=== PATIENT | female | born 1960 | race Caucasian/White ===

== ENCOUNTER 2021-11-26 17:07 | Inpatient (IN) | payer MEDICARE, OTHER ==
[~2021-11-26] VITALS: Ht 154.9 cm; Wt 88.6 kg
--- NOTE | 2021-11-26 17:52 | NUR ---
BLOOD SAMPLE AND COVID SWAB OBTAINED, SENT TO LAB
[2021-11-26 18:00] LABS: BASOPHILS % (AUTO) 0.7 % (0.0-2.0); EOSINOPHILS % (AUTO) 4.4 % (0.0-6.0); HEMATOCRIT 34 % (33-45); HEMOGLOBIN 10.9 g/dL (11.5-14.8); LYMPHOCYTES # (AUTO) 1.4 K/uL (0.8-4.8); MEAN CORPUSCULAR HGB CONC 32 g/dl (31.0-36.0); MEAN CORPUSCULAR VOLUME 89 fL (82-100); MONOCYTES # (AUTO) 0.5 K/uL (0.1-1.30); MONOCYTES % (AUTO) 9.3 % (2.0-12.0); NEUTROPHILS # (AUTO) 3.2 K/uL (1.8-8.9); NEUTROPHILS % (AUTO) 59.6 % (43.0-81.0); PLATELET COUNT (AUTO) 224 K/uL (150-450); RED BLOOD CELL COUNT(AUTO) 3.76 MIL/uL (4.0-5.2); WHITE BLOOD COUNT (AUTO) 5.4 K/uL (4.3-11.0)
[2021-11-26] MEDS ORDERED: ENALAPRILAT DIHYD. (2.5MG/2ML) 1.25 MG/ML VIAL IV ONE ×2 (18:00→18:05)
[2021-11-26] MEDS ORDERED: FUROSEMIDE 40 MG/4 ML VIAL IV ONE (18:00)
[2021-11-26] MEDS ORDERED: NITROGLYCERIN 0.4 MG/TAB BOTTLE SL ONE (18:00)
[2021-11-26] MEDS ORDERED: ENALAPRILAT INJ (1.25 MG/ML) 1.25 MG/ML VIAL IV ONE (18:01)
[2021-11-26] MEDS ORDERED: FUROSEMIDE 40 MG/4 ML VIAL ONE (18:01)
[2021-11-26] MEDS ORDERED: NITROGLYCERIN 0.4 MG/TAB BOTTLE ONE (18:02)
[2021-11-26 18:10] LABS: CALCIUM, SERUM 8.3 mg/dL (8.5-10.1); CARBON DIOXIDE 30 mmol/L (21-32); CHLORIDE 107 mmol/L (98-107); CREATININE 1.5 mg/dL (0.6-1.3); GLUCOSE 177 mg/dL (74-106); POTASSIUM 3.6 mmol/L (3.5-5.1); SODIUM SERUM 140 mmol/L (136-145); UREA NITROGEN, BLOOD 33 mg/dL (7-18)
--- NOTE | 2021-11-26 18:37 | NUR ---
20 G SL ESTABLISHED ON R AC, FLUSHES WELL
[2021-11-26] MEDS ORDERED: ALLA266C2 TP (18:51)
[2021-11-26] MEDS ORDERED: BUME1TAB8 PO (18:51)
[2021-11-26] MEDS ORDERED: CRAN425C6 PO (18:51)
[2021-11-26] MEDS ORDERED: POVI3780 TP (18:51)
[2021-11-26] MEDS ORDERED: INSU100V39 SQ (18:51)
[2021-11-26] MEDS ORDERED: SITA100T PO (18:51)
[2021-11-26] MEDS ORDERED: LEVO200T8 PO (18:51)
[2021-11-26] MEDS ORDERED: NA P133E RC (18:51)
[2021-11-26] MEDS ORDERED: DOCU-141 PO (18:51)
[2021-11-26] MEDS ORDERED: ASPI-1169 PO (18:51)
[2021-11-26] MEDS ORDERED: LOSA50TA39 PO (18:51)
[2021-11-26] MEDS ORDERED: CARV12.52 PO (18:51)
[2021-11-26] MEDS ORDERED: CLON0.1T SL (18:51)
[2021-11-26] MEDS ORDERED: MULT-447 PO (18:51)
[2021-11-26] MEDS ORDERED: BISA10SU11 RC (18:51)
[2021-11-26] MEDS ORDERED: ACET-868 PO (18:51)
[2021-11-26] MEDS ORDERED: MAGN400O6 PO (18:51)
[2021-11-26] MEDS ORDERED: CHOL100043 PO (18:51)
[2021-11-26] MEDS ORDERED: ASCO-352 PO (18:51)
--- NOTE | 2021-11-26 19:34 | NUR ---
MOVE SHEET SUBMITTED.
--- NOTE | 2021-11-26 20:23 | NUR ---
MRSA SWAB COLLECTED AND BELONGINGS LIST DONE
--- NOTE | 2021-11-26 22:01 | NUR ---
REPORT GIVEN TO MAXI HUFF FOR OUMAR
[2021-11-26] MEDS ORDERED: ONDANSETRON HCL/PF 4 MG/2 ML VIAL IVP PRN (22:30)
[2021-11-26] MEDS ORDERED: Z GUARD REMEDY 4 OZ OINT TP PRN (22:30)
[2021-11-26] MEDS ORDERED: DEXTROSE 50%-WATER 50 ML DISP.SYRIN IV PRN (22:30)
[2021-11-26] MEDS ORDERED: ACETAMINOPHEN 325 MG TABLET PO PRN (22:30)
[2021-11-26 22:35] VITALS: BP 180/100
[2021-11-26] MEDS ORDERED: BISACODYL SUPP (10 MG) 10 MG/SUPP.RECT SUPP.RECT RC PRN (23:30)
--- NOTE | 2021-11-26 23:30 | NUR ---
DIGITAL CARTOGRAPHIC TECHNICIANPOLICE DEPARTMENT SECRETARY NOTES: RECEIVED PATIENT FROM ER VIA RNEY AWAKE, TRANSFER TO ROOM 307-2, NO COMPLAIN OF PAIN AND DISCOMFORT, SKIN ASSESSMENT DONE, NO SKIN ISSUES HAVE BEEN OBSERVED, INVENTORIES OF PERSONAL BELONGING DONE AND DOCUMENTED, PATIENT ON TELE MONITOR- SR-64, PLACED COMFORTABLY IN BED ORIENTED TO PLACE, V/S ARE RECORDED AT 170/100 CATAPRES 0.1MG SL Q6H GIVEN FOR SYSTOLIC BP>160 TO REPEAT V/S IN 30 MINUTES FOR VERIFICATION, PATIENT ON ROOM AIR SATURATING WELL, REMIND PATIENT TO USE CALL LIGHTS WHEN NEEDED ASSISTANCE, KEPT CLEAN AND DRY ALL NEEDS MET WILL CONTINUE TO MONITOR.
[2021-11-27] VITALS: BP 182/95
[2021-11-27] MEDS: CLONIDINE HCL 0.1 MG TABLET SL PRN ×2 (00:10→06:35)
--- NOTE | 2021-11-27 00:30 | NUR ---
RN NOTES: PATIENT WAS NOTED WIIH HIGH BP OF 175/100 ON MANUAL BLOOD PRESSURE GIVEN: CLONIDINE 0.5MG PRN Q6H FOR SYSTOLIC BP OF OVER 160 WILL CONTINUE TO MONITOR.
[2021-11-27 04:00] VITALS: BP 172/92
[2021-11-27 05:52] LABS: BASOPHILS % (AUTO) 0.8 % (0.0-2.0); EOSINOPHILS % (AUTO) 4.4 % (0.0-6.0); HEMATOCRIT 32 % (33-45); HEMOGLOBIN 10.5 g/dL (11.5-14.8); LYMPHOCYTES # (AUTO) 1.5 K/uL (0.8-4.8); LYMPHOCYTES % (AUTO) 26.7 % (20.0-44.0); MEAN CORPUSCULAR HGB CONC 33 g/dl (31.0-36.0); MEAN CORPUSCULAR VOLUME 89 fL (82-100); MONOCYTES # (AUTO) 0.5 K/uL (0.1-1.30); MONOCYTES % (AUTO) 8.8 % (2.0-12.0); NEUTROPHILS # (AUTO) 3.2 K/uL (1.8-8.9); NEUTROPHILS % (AUTO) 59.3 % (43.0-81.0); PLATELET COUNT (AUTO) 208 K/uL (150-450); RED BLOOD CELL COUNT(AUTO) 3.54 MIL/uL (4.0-5.2); WHITE BLOOD COUNT (AUTO) 5.5 K/uL (4.3-11.0)
[2021-11-27] MEDS: INSULIN REGULAR, HUMAN 100 UNIT/ML 3 ML VIAL SQ PRN ×5 (06:53→21:31)
--- NOTE | 2021-11-27 06:55 | NUR ---
RN NOTES: BLOOD SUGAR- 138 2 UNITS INSULIN GIVEN PER SLIDING SCALE.
--- NOTE | 2021-11-27 06:56 | NUR ---
POULTRY PATHOLOGIST CLOSING NOTES: PATIENT SLEEP IN BED COMFORTABLY, BED IN LOW POSITION CALL LIGHTS WITHIN REACH, NO COMPLAIN OF PAIN AND DISCOMFORT AT THIS TIME ON ROOM AIR SATURATING WELL, PATIENT IS A/OX3-4 ABLE TO MAKE NEEDS KNOWN ON MONITORING FOR HYPERTENSION , ON TELE [id number], PATIENT KEPT CLEAN AND DRY ALL NEEDS MET ENDORSE TO INCOMING SHIFT.
[2021-11-27 07:01] LABS: THYROID STIMULATING HORMONE 10.623 uIU/mL (0.358-3.74)
[2021-11-27 07:06] LABS: ALBUMIN 2.1 g/dL (3.4-5.0); BILIRUBIN,TOTAL 0.6 mg/dL (0.2-1.0); CALCIUM, SERUM 8.2 mg/dL (8.5-10.1); CREATININE 1.4 mg/dL (0.6-1.3); POTASSIUM 3.4 mmol/L (3.5-5.1); TOTAL PROTEIN, SERUM 5.6 g/dL (6.4-8.2)
[2021-11-27 08:00] VITALS: BP 182/96
[2021-11-27] MEDS: BLOOD SUGAR DIAGNOSTIC 1 EACH STRIP IN SCH ×4 (08:13→21:31)
[2021-11-27] MEDS: ASPIRIN 81 MG TAB.CHEW PO SCH (08:49)
[2021-11-27] MEDS: MULTIVITAMINS,THERAGRAN 1 UDTAB TABLET PO SCH (08:50)
[2021-11-27] MEDS: CHOLECALCIFEROL 1,000 UNIT TABLET (VIT D3) PO SCH (08:50)
[2021-11-27] MEDS: ASCORBIC ACID 500 MG TABLET PO SCH (08:50)
[2021-11-27] MEDS: DOCUSATE SODIUM 100 MG CAPSULE PO SCH (08:50)
[2021-11-27] MEDS: CARVEDILOL 12.5 MG TABLET PO SCH ×2 (08:50→17:09)
[2021-11-27] MEDS: HEPARIN SODIUM, PORCINE 5000 UNITS/1 ML VIAL SQ SCH ×2 (08:51→21:30)
[2021-11-27] MEDS: PANTOPRAZOLE 40 MG TABLET.DR PO SCH (09:02)
[2021-11-27] MEDS: LEVOTHYROXINE SODIUM 100 MCG TABLET PO SCH ×2 (09:02→09:26)
--- NOTE | 2021-11-27 09:18 | NUR ---
RN NOTE- NOTED TSH IS 10.623. CALLED DR DICKINSON TO CLARIFY ORDERS
[2021-11-27] MEDS: FUROSEMIDE 40 MG/4 ML VIAL IV SCH ×3 (09:49→17:09)
[2021-11-27] MEDS: POTASSIUM CHLORIDE 20 MEQ TAB.PRT.SR PO SCH ×3 (09:50→12:23)
[2021-11-27] MEDS: hydrALAZINE HCL 50 MG TABLET PO SCH ×3 (09:50→17:08)
[2021-11-27] MEDS: NITROGLYCERIN 30 GM TUBE TP SCH ×2 (10:39→21:30)
--- NOTE | 2021-11-27 11:27 | NUR ---
RN OPENING NOTES- PATIENT SLEEP IN BED COMFORTABLY, BED IN LOW POSITION CALL LIGHTS WITHIN REACH, NO COMPLAIN OF PAIN AND DISCOMFORT AT THIS TIME ON ROOM AIR SATURATING WELL, PATIENT IS A/OX3-4 ABLE TO MAKE NEEDS KNOWN ON MONITORING FOR HYPERTENSION , ON TELE [id number]. MONITOR/ ASSIST
[2021-11-27 12:00] VITALS: BP 129/61
[2021-11-27 16:00] VITALS: BP 152/76
--- NOTE | 2021-11-27 18:31 | NUR ---
RN CLOSING NOTES- PATIENT COMFORTABLE ALERT, BED IN LOW POSITION, CALL LIGHT WITHIN REACH, NO COMPLAINT OF PAIN AND DISCOMFORT AT THIS TIME ON ROOM AIR SATURATING WELL, PATIENT IS A/OX3-4 ABLE TO MAKE NEEDS KNOWN ON MONITORING FOR HYPERTENSION , BP MORE CONTROLLED W CURRENT RX, ON TELE [id number]. DIURESED TODAY [place] CR REPLACED, PO INTAKE FAIR, MONITOR / ASSIST
--- NOTE | 2021-11-27 19:35 | NUR ---
RN OPENING NOTES- PATIENT COMFORTABLE ALERT, BED IN LOW POSITION, CALL LIGHT WITHIN REACH, TABLE WITHIN REACH BED IN LOW POSITION AND LOCKED. BED ALARM ON. NO COMPLAINT OF PAIN AND DISCOMFORT AT THIS TIME ON ROOM AIR SATURATING WELL, PATIENT IS A/OX3-4 ABLE TO MAKE NEEDS KNOWN ON MONITORING FOR HYPERTENSION , ON TELE [id number].
[2021-11-27 20:00] VITALS: BP 139/70
[2021-11-28] VITALS: BP 158/70
[2021-11-28 04:00] VITALS: BP 135/69
[2021-11-28 06:16] LABS: BASOPHILS % (AUTO) 0.7 % (0.0-2.0); EOSINOPHILS % (AUTO) 2.2 % (0.0-6.0); HEMATOCRIT 31 % (33-45); HEMOGLOBIN 10.2 g/dL (11.5-14.8); LYMPHOCYTES # (AUTO) 1.1 K/uL (0.8-4.8); LYMPHOCYTES % (AUTO) 19.2 % (20.0-44.0); MEAN CORPUSCULAR HGB CONC 33 g/dl (31.0-36.0); MEAN CORPUSCULAR VOLUME 89 fL (82-100); MONOCYTES # (AUTO) 0.5 K/uL (0.1-1.30); MONOCYTES % (AUTO) 8.3 % (2.0-12.0); NEUTROPHILS # (AUTO) 4.1 K/uL (1.8-8.9); NEUTROPHILS % (AUTO) 69.6 % (43.0-81.0); PLATELET COUNT (AUTO) 219 K/uL (150-450); RED BLOOD CELL COUNT(AUTO) 3.46 MIL/uL (4.0-5.2); WHITE BLOOD COUNT (AUTO) 5.9 K/uL (4.3-11.0)
[2021-11-28 06:39] LABS: ALBUMIN 2.2 g/dL (3.4-5.0); BILIRUBIN,TOTAL 0.6 mg/dL (0.2-1.0); CALCIUM, SERUM 8.3 mg/dL (8.5-10.1); CREATININE 1.6 mg/dL (0.6-1.3); MAGNESIUM 1.8 mg/dL (1.8-2.4); PHOSPHORUS 4.1 mg/dL (2.5-4.9); POTASSIUM 3.7 mmol/L (3.5-5.1); TOTAL PROTEIN, SERUM 5.7 g/dL (6.4-8.2)
[2021-11-28] MEDS: BLOOD SUGAR DIAGNOSTIC 1 EACH STRIP IN SCH ×4 (06:55→22:23)
[2021-11-28] MEDS: INSULIN REGULAR, HUMAN 100 UNIT/ML 3 ML VIAL SQ PRN ×2 (06:55→22:23)
--- NOTE | 2021-11-28 06:56 | NUR ---
RN CLOSING NOTES PATIENT COMFORTABLE ALERT, BED IN LOW POSITION, CALL LIGHT WITHIN REACH, TABLE WITHIN REACH BED IN LOW POSITION AND LOCKED. BED ALARM ON. NO COMPLAINT OF PAIN AND DISCOMFORT AT THIS TIME ON ROOM AIR SATURATING WELL, PATIENT IS A/OX3-4 ABLE TO MAKE NEEDS KNOWN ON MONITORING FOR HYPERTENSION , ON TELE [id number].
--- NOTE | 2021-11-28 07:30 | NUR ---
RN Opening Note. PT AOx4, able to express her own concerns. Patient made aware of plan of care and agrees. Will continue to monitor throughout shift and administer medications as ordered. Will continue to monitor and provide care as needed. No signs of distress or discomfort. All safety precautions taken, call light and table within reach, bed at lowest position.
[2021-11-28 08:00] VITALS: BP 138/75
[2021-11-28] MEDS: LEVOTHYROXINE SODIUM 100 MCG TABLET PO SCH (08:01)
[2021-11-28] MEDS: POTASSIUM CHLORIDE 20 MEQ TAB.PRT.SR PO SCH ×3 (08:01→11:21)
[2021-11-28] MEDS: FUROSEMIDE 100 MG/10 ML VIAL IV SCH ×3 (08:01→16:34)
[2021-11-28] MEDS: PANTOPRAZOLE 40 MG TABLET.DR PO SCH (08:01)
[2021-11-28] MEDS: CHOLECALCIFEROL 1,000 UNIT TABLET (VIT D3) PO SCH (08:11)
[2021-11-28] MEDS: ASCORBIC ACID 500 MG TABLET PO SCH (08:11)
[2021-11-28] MEDS: ASPIRIN 81 MG TAB.CHEW PO SCH (08:11)
[2021-11-28] MEDS: DOCUSATE SODIUM 100 MG CAPSULE PO SCH (08:11)
[2021-11-28] MEDS: HEPARIN SODIUM, PORCINE 5000 UNITS/1 ML VIAL SQ SCH ×2 (08:12→22:07)
[2021-11-28] MEDS: CARVEDILOL 12.5 MG TABLET PO SCH ×2 (08:15→16:35)
[2021-11-28] MEDS: hydrALAZINE HCL 50 MG TABLET PO SCH (08:16)
[2021-11-28] MEDS: MULTIVITAMINS,THERAGRAN 1 UDTAB TABLET PO SCH (09:00)
[2021-11-28] MEDS: NITROGLYCERIN 30 GM TUBE TP SCH ×2 (11:13→22:05)
[2021-11-28] MEDS ORDERED: POTASSIUM CHLORIDE 20 MEQ TAB.PRT.SR PO SCH ×2 (12:00→13:00)
--- NOTE | 2021-11-28 12:05 | NUR ---
SS consult requested by patient for power of mixing tank operator information. The pt. is a 61 year old female currently admitted to Med Surg due to CHF per EMR. The pt. is awake, alert & oriented x 4 and does not make eye contact. Pt. 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 BRITNI explained the filing process and she expressed understanding and asked that I explain to her daughter, Amy Doherty [phone]. SW called the pt.'s daughter, mAy Doherty [phone] and educated her on how to complete paperwork with the pt. and have it signed by pub;melanie bennett and provided public notary contact. Amy stated she lives near by and will assist pt. with completing paperwork. SW left [facility] Power of Rn Nursery Form at bedside for patient and daughter to complete. SW will be available as needed.
[2021-11-28] MEDS: NIFEdipine XL (30MG) 30 MG TAB PO SCH (12:56)
[2021-11-28 16:02] VITALS: BP 124/73
--- NOTE | 2021-11-28 19:30 | NUR ---
RN OPENING NOTES RECEIVED PT IN BED, ASLEEP, AWAKE, LISTENING TO RADIO. AOx4, ABLE TO MAKE NEEDS KNOWN. ON RA AND TOLERATING WELL. NO SOB NOTED. NO S/SX OF RESPIRATORY DISTRESS NOTED. TELE MONITOR DETECTS SINUS RHYTHM. IV ACCESS IN RAC #20G. IV IS INTACT, PATENT, AND FLUSHING WELL. SAFETY PRECAUTIONS IN PLACE: BED IN LOWEST, LOCKED POSITION, SIDERAILS UP x2, AND BRAKES ON. TABLE AND CALL LIGHT WITHIN REACH. ALL NEEDS MET AT THIS TIME.
--- NOTE | 2021-11-28 19:43 | NUR ---
RN Closing Note. PT AOx4, able to express her own concerns. Patient remained safe throughout shift, no adverse events. Patients daughter was able to deliver food for patient. Provided all medications as prescribed, monitored sugars, did not administered insulin since patients sugars were stable and she was not eating, states she is not that hungry. No signs of distress or discomfort. All safety precautions taken, call light and table within reach, bed at lowest position.
[2021-11-28 20:20] VITALS: BP 124/55
--- NOTE | 2021-11-28 22:00 | NUR ---
RN NOTES RECEIVED CRITICAL LAB VALUE FOR TROPONIN OF 75. SHINGLE SAWYER, TERESA, MADE AWARE. NO NEW ORDERS.
[2021-11-29 01:07] VITALS: BP 160/71
[2021-11-29 04:49] VITALS: BP 135/73
[2021-11-29 06:23] LABS: BASOPHILS % (AUTO) 0.8 % (0.0-2.0); EOSINOPHILS % (AUTO) 3.2 % (0.0-6.0); HEMATOCRIT 31 % (33-45); HEMOGLOBIN 10.1 g/dL (11.5-14.8); LYMPHOCYTES # (AUTO) 1.2 K/uL (0.8-4.8); LYMPHOCYTES % (AUTO) 20.3 % (20.0-44.0); MEAN CORPUSCULAR HGB CONC 33 g/dl (31.0-36.0); MEAN CORPUSCULAR VOLUME 90 fL (82-100); MONOCYTES # (AUTO) 0.5 K/uL (0.1-1.30); MONOCYTES % (AUTO) 8.9 % (2.0-12.0); NEUTROPHILS # (AUTO) 3.9 K/uL (1.8-8.9); NEUTROPHILS % (AUTO) 66.8 % (43.0-81.0); PLATELET COUNT (AUTO) 210 K/uL (150-450); RED BLOOD CELL COUNT(AUTO) 3.39 MIL/uL (4.0-5.2); WHITE BLOOD COUNT (AUTO) 5.9 K/uL (4.3-11.0)
[2021-11-29] MEDS: BLOOD SUGAR DIAGNOSTIC 1 EACH STRIP IN SCH ×4 (06:34→21:50)
[2021-11-29] MEDS: INSULIN REGULAR, HUMAN 100 UNIT/ML 3 ML VIAL SQ PRN (06:34)
--- NOTE | 2021-11-29 07:02 | NUR ---
RN CLOSING NOTES PT IN BED, ASLEEP, AWAKENS TO VERBAL STIMULI. AOx4, ABLE TO MAKE NEEDS KNOWN. ON RA AND TOLERATING WELL. NO SOB NOTED. NO S/SX OF RESPIRATORY DISTRESS NOTED. TELE MONITOR DETECTS SINUS RHYTHM. IV ACCESS IN RAC #20G. IV IS INTACT, PATENT, AND FLUSHING WELL. ALL NEEDS MET. ALL ORDERS CARRIED OUT. PT KEPT CLEAN AND DRY. SAFETY PRECAUTIONS IN PLACE: BED IN LOWEST, LOCKED POSITION, SIDERAILS UP x2, AND BRAKES ON. TABLE AND CALL LIGHT WITHIN REACH. WILL ENDORSE TO ONCOMING SHIFT FOR OUMAR.
--- NOTE | 2021-11-29 07:30 | NUR ---
RN Opening Note PT AOx4 able to express her own concerns. Patient with no signs of distress. Patient asking for help with her personal radio and making calls since she states she is blind. IV shows no signs of infiltration, no pain reported on IV site. Patient states she is able to reposition herself as needed.Will continue to monitor patient, administer medications as ordered and provide care as needed. All safety precautions taken, call light and table within reach, bed at lowest position.
[2021-11-29 07:45] LABS: ALBUMIN 2.2 g/dL (3.4-5.0); BILIRUBIN,TOTAL 0.6 mg/dL (0.2-1.0); CALCIUM, SERUM 8.2 mg/dL (8.5-10.1); CREATININE 1.7 mg/dL (0.6-1.3); MAGNESIUM 1.8 mg/dL (1.8-2.4); PHOSPHORUS 4.3 mg/dL (2.5-4.9); POTASSIUM 3.9 mmol/L (3.5-5.1); TOTAL PROTEIN, SERUM 5.8 g/dL (6.4-8.2)
[2021-11-29 08:00] VITALS: BP 131/68
[2021-11-29] MEDS: LEVOTHYROXINE SODIUM 100 MCG TABLET PO SCH (08:33)
[2021-11-29] MEDS: ASCORBIC ACID 500 MG TABLET PO SCH (08:33)
[2021-11-29] MEDS: DOCUSATE SODIUM 100 MG CAPSULE PO SCH (08:33)
[2021-11-29] MEDS: MULTIVITAMINS,THERAGRAN 1 UDTAB TABLET PO SCH (08:33)
[2021-11-29] MEDS: CHOLECALCIFEROL 1,000 UNIT TABLET (VIT D3) PO SCH (08:34)
[2021-11-29] MEDS: ASPIRIN 81 MG TAB.CHEW PO SCH (08:34)
[2021-11-29] MEDS: PANTOPRAZOLE 40 MG TABLET.DR PO SCH (08:34)
[2021-11-29] MEDS: NIFEdipine XL (30MG) 30 MG TAB PO SCH (08:36)
[2021-11-29] MEDS: CARVEDILOL 12.5 MG TABLET PO SCH ×2 (08:37→16:40)
[2021-11-29] MEDS: NITROGLYCERIN 30 GM TUBE TP SCH ×2 (08:37→20:41)
[2021-11-29] MEDS: HEPARIN SODIUM, PORCINE 5000 UNITS/1 ML VIAL SQ SCH ×2 (08:39→20:39)
[2021-11-29 12:00] VITALS: BP 138/67
[2021-11-29 16:00] VITALS: BP 133/64
--- NOTE | 2021-11-29 19:26 | NUR ---
RN Closing Notes Patient AOx4, explained plan of care to pt and daughter. Aware of possible discharge tomorrow and pending life vest. Provided care and medications as prescribed. Patient remained safe throughout shift. All safety precautions taken, call light and table within reach and bed at lowest position.
[2021-11-29 20:00] VITALS: BP 118/61
--- NOTE | 2021-11-29 20:07 | NUR ---
RECEIVED IN BED ALERT AND ORIENTATED X4 SMILING NO SOB WATCHING TV CALL LIGHT WITHIN HER REACH
[2021-11-30] VITALS: BP 117/57
[2021-11-30 04:00] VITALS: BP_SYST 117; BP_SYST 126; BP_DIAS 57; BP_DIAS 67
--- NOTE | 2021-11-30 05:28 | NUR ---
CLOSING NOTES: ALERT AND ORIENTATED X4 COOPERATIVE ROOM AIR THIS SHIFT SATS 90- 98% ROOM AIR NO SOB PATIENT IS BLIND TABLE SET UP SO SHE IS ABLE TO REACH FOR HER WATER AND TISSUE
[2021-11-30] MEDS: BLOOD SUGAR DIAGNOSTIC 1 EACH STRIP IN SCH ×4 (05:53→21:07)
[2021-11-30 06:14] LABS: BASOPHILS % (AUTO) 0.4 % (0.0-2.0); EOSINOPHILS % (AUTO) 3.3 % (0.0-6.0); HEMATOCRIT 31 % (33-45); HEMOGLOBIN 10.2 g/dL (11.5-14.8); LYMPHOCYTES # (AUTO) 1.3 K/uL (0.8-4.8); LYMPHOCYTES % (AUTO) 21.1 % (20.0-44.0); MEAN CORPUSCULAR HGB CONC 33 g/dl (31.0-36.0); MEAN CORPUSCULAR VOLUME 89 fL (82-100); MONOCYTES # (AUTO) 0.6 K/uL (0.1-1.30); MONOCYTES % (AUTO) 9.5 % (2.0-12.0); NEUTROPHILS # (AUTO) 4.1 K/uL (1.8-8.9); NEUTROPHILS % (AUTO) 65.7 % (43.0-81.0); PLATELET COUNT (AUTO) 209 K/uL (150-450); RED BLOOD CELL COUNT(AUTO) 3.45 MIL/uL (4.0-5.2); WHITE BLOOD COUNT (AUTO) 6.2 K/uL (4.3-11.0)
[2021-11-30 06:35] LABS: CALCIUM, SERUM 8.1 mg/dL (8.5-10.1); CREATININE 1.9 mg/dL (0.6-1.3); MAGNESIUM 1.8 mg/dL (1.8-2.4); PHOSPHORUS 4.3 mg/dL (2.5-4.9); POTASSIUM 3.9 mmol/L (3.5-5.1)
--- NOTE | 2021-11-30 07:30 | NUR ---
BENCHROOM SHOP OPTICIAN OPENING NOTES RECEIVED PT IN BED, AWAKE AOx4, ABLE TO MAKE NEEDS KNOWN. ON RA AND TOLERATING WELL. NO SOB NOTED. NO S/SX OF RESPIRATORY DISTRESS NOTED. TELE MONITOR READS SINUS RHYTHM. IV ACCESS IN RAC #20G. IV IS INTACT, PATENT, AND FLUSHING WELL. AA SAFETY PRECAUTIONS IN PLACE: BED IN LOWEST, LOCKED POSITION, SIDERAILS UP x2, AND BRAKES ON. TABLE AND CALL LIGHT WITHIN REACH. ALL NEEDS MET AT THIS TIME.WILL CONTINUE TO MONITOR.
[2021-11-30] MEDS: PANTOPRAZOLE 40 MG TABLET.DR PO SCH (07:56)
[2021-11-30] MEDS: LEVOTHYROXINE SODIUM 100 MCG TABLET PO SCH (07:56)
[2021-11-30] MEDS: MULTIVITAMINS,THERAGRAN 1 UDTAB TABLET PO SCH (09:07)
[2021-11-30] MEDS: ASPIRIN 81 MG TAB.CHEW PO SCH (09:07)
[2021-11-30] MEDS: ASCORBIC ACID 500 MG TABLET PO SCH (09:09)
[2021-11-30] MEDS: CARVEDILOL 12.5 MG TABLET PO SCH ×2 (09:09→17:13)
[2021-11-30] MEDS: DOCUSATE SODIUM 100 MG CAPSULE PO SCH (09:09)
[2021-11-30] MEDS: CHOLECALCIFEROL 1,000 UNIT TABLET (VIT D3) PO SCH (09:10)
[2021-11-30] MEDS: NIFEdipine XL (30MG) 30 MG TAB PO SCH (09:11)
[2021-11-30] MEDS: HEPARIN SODIUM, PORCINE 5000 UNITS/1 ML VIAL SQ SCH ×2 (09:13→21:02)
[2021-11-30] MEDS: SPIRONOLACTONE 25 MG TABLET PO SCH (09:20)
[2021-11-30] MEDS ORDERED: SACU1TAB7 PO (12:05)
[2021-11-30] MEDS ORDERED: NIFE-35 PO (12:05)
[2021-11-30] MEDS ORDERED: DAPA10TA PO (12:05)
--- NOTE | 2021-11-30 18:33 | NUR ---
RODENT EXTERMINATOR CLOSING NOTES PT IN BED, AWAKE AOx4, ABLE TO MAKE NEEDS KNOWN. ON RA AND TOLERATING WELL. NO SOB NOTED. NO S/SX OF RESPIRATORY DISTRESS NOTED. PATIENT IS BLIND. TELE MONITOR READS SINUS RHYTHM. IV ACCESS IN RAC #20G. IV IS INTACT, PATENT, AND FLUSHING WELL. ALL DUE MEDS GIVEN ORDERED. PATIENT ON LIFE VEST. THE NURSE WHO EDUCATE THE PATIENT FOR LIFE VEST USE STATED SINCE THE PATIENT IS BLIND THEY WILL FOLLOW-UP FOR ANOTHER EDUCATION TOMORROW WHEN DISCHARGE TO FACILITY. DC ORDER FOR COUNTS INCLUDE 234 BEDS AT THE [facility] PER NOTES AT 1000 AM.ALL SAFETY PRECAUTIONS IN PLACE: BED IN LOWEST, LOCKED POSITION, SIDE RAILS UP x2, AND BRAKES ON. TABLE AND CALL LIGHT WITHIN REACH. ALL NEEDS MET AT THIS TIME.WILL ENDORSE FOR OUMAR.
--- NOTE | 2021-11-30 19:33 | NUR ---
EVENT SECURITY OFFICER OPENING NOTE RECEIVED PT AWAKE IN BED. A/O X4, BLIND, AND ABLE TO MAKE NEEDS KNOWN. PT STABLE ON ROOM AIR. NO SOB OR S/S OF RESPIRATORY DISTRESS. BREATHING EVEN AND UNLABORED. ON EXTERNAL CARGO HANDLER READING SR. WITH LIFE VEST ON. SAFETY PRECAUTIONS IN PLACE. BED IN LOWEST LOCKED POSITION, HOB ELEVATED, SIDE RAILS UP X 3, AND CALL LIGHT AND TABLE WITHIN REACH. ALL NEEDS MET AT THIS TIME.
[2021-11-30 21:11] VITALS: BP 125/65
[2021-12-01] VITALS: BP 141/77
[2021-12-01 05:00] VITALS: BP 138/67
[2021-12-01 05:54] LABS: BASOPHILS % (AUTO) 0.5 % (0.0-2.0); EOSINOPHILS % (AUTO) 4.3 % (0.0-6.0); HEMATOCRIT 32 % (33-45); HEMOGLOBIN 10.5 g/dL (11.5-14.8); LYMPHOCYTES # (AUTO) 1.1 K/uL (0.8-4.8); LYMPHOCYTES % (AUTO) 18.1 % (20.0-44.0); MEAN CORPUSCULAR HGB CONC 33 g/dl (31.0-36.0); MEAN CORPUSCULAR VOLUME 90 fL (82-100); MONOCYTES # (AUTO) 0.6 K/uL (0.1-1.30); MONOCYTES % (AUTO) 9.7 % (2.0-12.0); NEUTROPHILS # (AUTO) 4.2 K/uL (1.8-8.9); NEUTROPHILS % (AUTO) 67.4 % (43.0-81.0); PLATELET COUNT (AUTO) 209 K/uL (150-450); RED BLOOD CELL COUNT(AUTO) 3.53 MIL/uL (4.0-5.2); WHITE BLOOD COUNT (AUTO) 6.2 K/uL (4.3-11.0)
[2021-12-01] MEDS: BLOOD SUGAR DIAGNOSTIC 1 EACH STRIP IN SCH (06:31)
[2021-12-01] MEDS: INSULIN REGULAR, HUMAN 100 UNIT/ML 3 ML VIAL SQ PRN (06:32)
--- NOTE | 2021-12-01 06:32 | NUR ---
RN NOTE PT REFUSED INSULIN AT THIS TIME. BS 138. EXPLAINED RISKS OF NOT TAKING INSULIN. PT VERBALIZED UNDERSTANDING AND STILL REFUSED STATING "I STILL DON'T THINK I NEED IT".
--- NOTE | 2021-12-01 06:40 | NUR ---
BINDERY MACHINE FEEDER OFFBEARER CLOSING NOTE PT AWAKE IN BED. A/O X4, BLIND, AND ABLE TO MAKE NEEDS KNOWN. PT STABLE ON ROOM AIR. NO SOB OR S/S OF RESPIRATORY DISTRESS. BREATHING EVEN AND UNLABORED. ON EXTERNAL CATHODE RAY TUBE SALVAGE PROCESSOR READING SR 69 BPM. WITH LIFE VEST ON. ALL DUE MEDS GIVEN ORDERED. FOR DC TODAY TO [facility], PICKUP SCHEDULED FOR 10 AM. SAFETY PRECAUTIONS IN PLACE AT ALL TIMES. BED IN LOWEST LOCKED POSITION, HOB ELEVATED, SIDE RAILS UP X 3, AND CALL LIGHT AND TABLE WITHIN REACH. ALL NEEDS MET AT THIS TIME AND WILL ENDORSE TO ONCOMING NURSE FOR OUMAR.
[2021-12-01 06:42] LABS: CALCIUM, SERUM 8.2 mg/dL (8.5-10.1); CREATININE 1.9 mg/dL (0.6-1.3); MAGNESIUM 1.9 mg/dL (1.8-2.4); PHOSPHORUS 4.1 mg/dL (2.5-4.9); POTASSIUM 3.7 mmol/L (3.5-5.1)
--- NOTE | 2021-12-01 07:14 | NUR ---
HEAD AND NECK SURGEON OPENING NOTES RECEIVED PT IN BED, AWAKE AOx4, ABLE TO MAKE NEEDS KNOWN. ON RA AND TOLERATING WELL. NO SOB NOTED. NO S/SX OF RESPIRATORY DISTRESS NOTED. TELE MONITOR READS SINUS RHYTHM. IV ACCESS IN RAC #20G. IV IS INTACT, PATENT, AND FLUSHING WELL. ALL SAFETY PRECAUTIONS IN PLACE: BED IN LOWEST, LOCKED POSITION, SIDERAILS UP x2, AND BRAKES ON. TABLE AND CALL LIGHT WITHIN REACH. ALL NEEDS MET AT THIS TIME.WILL CONTINUE TO MONITOR.
[2021-12-01] MEDS: PANTOPRAZOLE 40 MG TABLET.DR PO SCH (07:44)
[2021-12-01] MEDS: LEVOTHYROXINE SODIUM 100 MCG TABLET PO SCH (07:44)
[2021-12-01] MEDS: DOCUSATE SODIUM 100 MG CAPSULE PO SCH (08:40)
[2021-12-01] MEDS: ASPIRIN 81 MG TAB.CHEW PO SCH (08:41)
[2021-12-01 08:42] VITALS: BP 148/61
[2021-12-01] MEDS: NIFEdipine XL (30MG) 30 MG TAB PO SCH (08:42)
[2021-12-01] MEDS: CARVEDILOL 12.5 MG TABLET PO SCH (08:42)
[2021-12-01] MEDS: SPIRONOLACTONE 25 MG TABLET PO SCH (08:42)
[2021-12-01] MEDS: HEPARIN SODIUM, PORCINE 5000 UNITS/1 ML VIAL SQ SCH (08:43)
[2021-12-01] MEDS: CHOLECALCIFEROL 1,000 UNIT TABLET (VIT D3) PO SCH (09:00)
[2021-12-01] MEDS: MULTIVITAMINS,THERAGRAN 1 UDTAB TABLET PO SCH (09:00)
[2021-12-01] MEDS: ASCORBIC ACID 500 MG TABLET PO SCH (09:00)
--- NOTE | 2021-12-01 09:13 | NUR ---
RN NOTES PATIENT REFUSED MORNING DAILY MULTI VITAMIN, VITAMIN D AND VITAMIN C. EXPLAINED THE BENEFITS AND USE OF THE MEDICATIONS, PATIENT STILL REFUSING.RESPECT THE PATIENT'S RIGHTS.
--- NOTE | 2021-12-01 10:20 | NUR ---
LIFE SCIENCES DIRECTOR NOTES DISCHARGE PATIENT IN STABLE CONDITION WITH STABLE VITAL SIGNS. NO PAIN NOTED. NO SOB NOTED.NO DISTRESS NOTED. ALL DUE MEDS GIVEN ORDERED. ALL THE BELONGINGS ACCOUNTED AND SIGNED FOR. PATIENT HAD LIFE VEST, ALL THE BOX WITH 2 BATTERIES AND ASPHALT MIXING MACHINE OPERATOR IS WITH THE PATIENT. 2 MT CAME AT 1000 AM. PATIENT LEFT HOSPITAL IN STABLE CONDITION WITH STABLE VITAL SIGNS. MD AND CHARGE NURSE AWARE OF THE DISCHARGE.
--- NOTE | 2021-12-01 14:25 | NUR ---
RN NOTES CALLED [facility] WITH PHONE NUMBER [phone] AND GAVE REPORT TO DEANNA HUFF AT 0920 AM.
== END 2021-12-01 10:45 | DRG 280 ==
LOC: ER 17:10 → TELE 21:59
PROVIDERS: ADMIT Nurse Practitioner Family; ATTEND Nurse Practitioner Acute Care
DX: I13.0 Hypertensive heart and chronic kidney disease with heart failure and stage 1 through stage 4 chronic kidney disease, or unspecified chronic kidney disease (principal); I50.43 Acute on chronic combined systolic (congestive) and diastolic (congestive) heart failure; I21.4 Non-ST elevation (NSTEMI) myocardial infarction; N17.0 Acute kidney failure with tubular necrosis; G93.49 Other encephalopathy; I69.351 Hemiplegia and hemiparesis following cerebral infarction affecting right dominant side; R32 Unspecified urinary incontinence; Z79.84 Long term (current) use of oral hypoglycemic drugs; Z79.4 Long term (current) use of insulin; Z79.82 Long term (current) use of aspirin; Z79.899 Other long term (current) drug therapy; E03.9 Hypothyroidism, unspecified; E87.6 Hypokalemia; E11.22 Type 2 diabetes mellitus with diabetic chronic kidney disease; N18.9 Chronic kidney disease, unspecified; D63.8 Anemia in other chronic diseases classified elsewhere; I89.0 Lymphedema, not elsewhere classified; H54.7 Unspecified visual loss; E83.51 Hypocalcemia
CPT/HCPCS: 36415; 71045-TC; 80048-TC; 80053-TC; 80061-TC; 82728-TC; 82962-TC; 83540-TC; 83735-TC; 83880; 84100-TC; 84439-TC; 84443-TC; 84484-TC; 85025-TC; 87081-TC; 93307-TC; 97112-TC; 97530-TC; C9803; G0378; J1644; J1815; J1940; J3490; J7030

== ENCOUNTER 2022-04-11 12:54 | Inpatient (IN) | payer MEDICARE, OTHER ==
[~2022-04-11] VITALS: Ht 160 cm; Wt 85.7 kg
[~2022-04-11 12:54] MED LIST: ACET-868 PO; ALLA266C2 TP; ASCO-352 PO; ASPI-1169 PO; BISA10SU11 RC; BUME1TAB8 PO; CARV12.52 PO; CHOL100043 PO; CLON0.1T PO; CRAN425C6 PO; DAPA10TA PO; DOCU-141 PO; INSU100V39 SQ; LEVO200T8 PO; LOSA50TA39 PO; MAGN400O6 PO; MULT-447 PO; NA P133E RC; NIFE-35 PO; POVI3780 TP; SACU1TAB7 PO; SITA100T PO
--- NOTE | 2022-04-11 13:24 | NUR ---
COVID SWAB COLLECTED AND SENT TO LAB
[2022-04-11] MEDS ORDERED: FUROSEMIDE 20 MG/2 ML VIAL IV ONE (13:30)
--- NOTE | 2022-04-11 13:40 | NUR ---
rn notes patient came from waxing machine operator office Dr Jesu smart dx of fluid retention, swollen lower extremities. patient blind, was complaining of bilateral hip pain, incontinent of bowel/bladder. skin intact. no SOB noted. ER MD bedside.
--- NOTE | 2022-04-11 13:41 | NUR ---
MOVE SHEET SUBMITTED.
[2022-04-11 13:51] LABS: BASOPHILS # (AUTO) 0.1 K/uL (0.0-0.2); EOSINOPHILS % (AUTO) 5.4 % (0.0-6.0); HEMATOCRIT 29 % (33-45); HEMOGLOBIN 9.4 g/dL (11.5-14.8); LYMPHOCYTES % (AUTO) 29.2 % (20.0-44.0); MEAN CORPUSCULAR HGB CONC 33 g/dl (31.0-36.0); MEAN CORPUSCULAR VOLUME 97 fL (82-100); MONOCYTES # (AUTO) 0.6 K/uL (0.1-1.30); MONOCYTES % (AUTO) 8.5 % (2.0-12.0); NEUTROPHILS # (AUTO) 3.9 K/uL (1.8-8.9); NEUTROPHILS % (AUTO) 55.9 % (43.0-81.0); PLATELET COUNT (AUTO) 276 K/uL (150-450); RED BLOOD CELL COUNT(AUTO) 2.97 MIL/uL (4.0-5.2)
--- NOTE | 2022-04-11 13:51 | NUR ---
[facility] CALLED MUSIC PUBLISHER PAGED.
--- NOTE | 2022-04-11 13:57 | NUR ---
RN NOTES IV ACCESS ON NILSON GAUGE 20, MARCUS CATHETER INTACT.
[2022-04-11] MEDS ORDERED: FUROSEMIDE 20 MG/2 ML VIAL ONE (13:59)
[2022-04-11 14:05] LABS: CALCIUM, SERUM 8.5 mg/dL (8.5-10.1); CARBON DIOXIDE 24 mmol/L (21-32); CHLORIDE 106 mmol/L (98-107); CREATININE 1.8 mg/dL (0.6-1.3); GLUCOSE 150 mg/dL (74-106); POTASSIUM 3.7 mmol/L (3.5-5.1); SODIUM SERUM 137 mmol/L (136-145); UREA NITROGEN, BLOOD 38 mg/dL (7-18)
[2022-04-11 14:10] LABS: ALANINE AMINOTRANSFERASE 10 U/L (12-78); ALBUMIN 2.7 g/dL (3.4-5.0); ALKALINE PHOSPHATASE 121 U/L (46-116); ASPARTATE AMINOTRANSFERASE 18 U/L (15-37); BILIRUBIN,DIRECT 0.1 mg/dL (0.0-0.2); BILIRUBIN,TOTAL 0.4 mg/dL (0.2-1.0); TOTAL PROTEIN, SERUM 7.5 g/dL (6.4-8.2)
[2022-04-11] MEDS ORDERED: IBUP-2715 PO (14:27)
[2022-04-11] MEDS ORDERED: ARGI1POW13 PO (14:27)
[2022-04-11] MEDS ORDERED: DAPA10TA PO (14:27)
[2022-04-11] MEDS ORDERED: ACET-868 PO (14:27)
[2022-04-11] MEDS ORDERED: NIFE30TA91 PO (14:27)
[2022-04-11] MEDS ORDERED: ACET-2605 PO (14:27)
[2022-04-11] MEDS ORDERED: LOPE2CAP PO (14:27)
[2022-04-11] MEDS ORDERED: APIX2.5T PO (14:27)
[2022-04-11] MEDS ORDERED: INSU100V39 SQ (14:27)
[2022-04-11] MEDS ORDERED: HYDR30CR79 RC (14:27)
[2022-04-11] MEDS ORDERED: BENZ1LOZ58 MM (14:27)
--- NOTE | 2022-04-11 14:56 | NUR ---
RN NOTES URINE OUTPUT WAS 2600 ML.
[2022-04-11] MEDS ORDERED: BISACODYL SUPP (10 MG) 10 MG/SUPP.RECT SUPP.RECT RC PRN (15:00)
[2022-04-11] MEDS ORDERED: MAG HYDROX/AL HYDROX/SIMETH 30 ML UDC PO PRN (15:00)
[2022-04-11] MEDS ORDERED: ONDANSETRON HCL/PF 4 MG/2 ML VIAL IVP PRN (15:00)
[2022-04-11] MEDS ORDERED: NA PHOS,M-B/NA PHOS,DI-BA 1 EA ENEMA RC PRN (15:00)
[2022-04-11] MEDS ORDERED: MAGNESIUM HYDROXIDE 30 ML UDC PO PRN ×2 (15:00)
[2022-04-11] MEDS ORDERED: ACETAMINOPHEN 325 MG TABLET PO PRN ×3 (15:00)
[2022-04-11] MEDS ORDERED: DEXTROSE 50%-WATER 50 ML DISP.SYRIN IV PRN (15:00)
[2022-04-11] MEDS ORDERED: CLONIDINE HCL 0.1 MG TABLET SL PRN (15:00)
[2022-04-11] MEDS ORDERED: Z GUARD REMEDY 4 OZ OINT TP PRN (15:00)
[2022-04-11] MEDS ORDERED: ACETAMINOPHEN ES 500 MG TABLET PO PRN (15:00)
[2022-04-11] MEDS ORDERED: LOPERAMIDE HCL (2 MG CAP) 2 MG CAPSULE PO PRN (15:00)
[2022-04-11] MEDS ORDERED: CLONIDINE HCL 0.1 MG TABLET PO PRN (15:24)
--- NOTE | 2022-04-11 15:37 | NUR ---
GOT BED 311-2 ADMITTING INFORMED.
--- NOTE | 2022-04-11 15:48 | NUR ---
report given to Sarah HUFF to continue care.
--- NOTE | 2022-04-11 16:15 | NUR ---
PT TRANSFERRED TO UNIT VIA GURNEY. WARM HANDOFF GIVEN TO RN ASSIGNED.
[2022-04-11] MEDS: CARVEDILOL 12.5 MG TABLET PO SCH (17:00)
[2022-04-11] MEDS: HYDROCORTISONE CR 30 GM TUBE RC SCH (17:00)
[2022-04-11] MEDS: FUROSEMIDE 40 MG/4 ML VIAL IV SCH (17:09)
[2022-04-11] MEDS: APIXABAN 2.5 MG TABLET PO SCH (17:11)
[2022-04-11] MEDS: BLOOD SUGAR DIAGNOSTIC 1 EACH STRIP VI SCH ×2 (17:17→21:45)
[2022-04-11] MEDS: INSULIN REGULAR, HUMAN 100 UNIT/ML 3 ML VIAL SQ PRN (17:18)
[2022-04-11] MEDS: DOCUSATE SODIUM 100 MG CAPSULE PO SCH (17:39)
[2022-04-11 18:08] VITALS: BP 114/60
--- NOTE | 2022-04-11 18:39 | NUR ---
TUMBLER OPERATOR CLOSING/ADMITTING NOTES RECEIVED PATIENT VIA [facility] @1620 ACCOMPANIED BY TWO ER STAFF. PATIENT A/Ox3-4, BLIND ABLE TO SEE SHADOWS. PATIENT TRANSFERRED FROM [facility] TO BED, ABLE TO MOVE INDEPENDENTLY IN BED. V/S TAKEN, STABLE. PATIENT HAS FC DRAINING YELLOW URINE. IV ACCESS LAC #20G S/L. INTACT AND PATENT. PATIENT BROUGHT PATIENT FOOD. ON TELE MONITORING SHOWING SINUS RHYTHM HR 64 WITH 1ST DEGREE AV BLOCK. NO C/O OF CHEST PAIN. FULL BODY ASSESSMENT COMPLETED: CARDIAC SOUNDS WNL, LUNG SOUNDS WNL, GI/ WNL, SKIN ISSUES: SACRAL REDNESS AND BILATERAL LOWER EXTREMITY EDEMA PITTING +2. ALL PHOTOS TAKEN AND FILED INTO CHART. ALL MEDICATION ADMINISTERED, PT REFUSED BP, STOOL SOFTENER, AND INSULIN COVERSAGE. PATIENT ORIENTED TO STAFF AND HOW TO USE CALL LIGHT. SAFETY MEASURES IN PLACE: BED LOCKED AND IN LOWEST POSITION, HOB ELEVATED, CALL LIGHT WITHIN REACH, SIDE RAILS UPx3. WILL ENDORSE TO NEXT SHIFT ANY OUMAR.
--- NOTE | 2022-04-11 19:47 | NUR ---
received in bed alert and orientated X4 patient is blind bed alarm on side rails up appears comfortable
[2022-04-11 20:00] VITALS: BP 107/48
[2022-04-12] VITALS: BP 117/57
[2022-04-12 04:00] VITALS: BP 127/59
--- NOTE | 2022-04-12 05:27 | NUR ---
RN CLOSING NOTES: alert and orientated x4 verbalizes her needs stated that the MD wants her to have a defibrillator placed and if she does not have this done "I will " I don't want it done Do I have have to have it done just because the doctor said so? Explained to her to ask the doctor more question why he think she should have it placed, and ask him to speak to your daughter if you are unclear or unsure. "I know what I need and I don't want it" during the night she was on the monitor and she was showung SR with 1st degree HB HR 64 = n68 no SOB comfortable thru the night. Just the conversatio with [facility] doctor upset her about the defibrillator
[2022-04-12] MEDS: BLOOD SUGAR DIAGNOSTIC 1 EACH STRIP VI SCH ×4 (06:25→21:29)
[2022-04-12 07:23] LABS: CALCIUM, SERUM 8.3 mg/dL (8.5-10.1); CREATININE 1.8 mg/dL (0.6-1.3); MAGNESIUM 1.8 mg/dL (1.8-2.4); PHOSPHORUS 4.2 mg/dL (2.5-4.9); POTASSIUM 3.6 mmol/L (3.5-5.1)
--- NOTE | 2022-04-12 07:30 | NUR ---
ENGINEERING MANAGER OPENING NOTE: PT RECEIVED IN BED, AWAKE. A/O X 4. ON RA, TOLERATED WELL. WITH NO SIGNS OF ACUTE RESPIRATORY DISTRESS. ABLE TO MAKE NEEDS KNOWN. NO C/O PAIN AND DISCOMFORT AT THIS TIME. IV ACCESS IN LAC #20G SL, C/D/I. WITH EMAIL OPERATIONS MANAGER IN SR 1ST DEGREE HB, HR-70. WITH MARCUS DRAINING VIA GRAVITY WITH SLIGHTLY CLOUDY YELLOW URINE. SAFETY MEASURE IN PLACE: CALL LIGHT AND TRAY TABLE WITHIN REACH, BED LOCKED AND IN LOWEST POSITION, SIDE RAILS X 3. WILL CONTINUE TO MONITOR.
[2022-04-12] MEDS: LEVOTHYROXINE SODIUM 100 MCG TABLET PO SCH (07:41)
[2022-04-12 08:00] VITALS: BP 133/58
[2022-04-12 08:02] LABS: BASOPHILS # (AUTO) 0.1 K/uL (0.0-0.2); BASOPHILS % (AUTO) 0.8 % (0.0-2.0); HEMATOCRIT 25 % (33-45); HEMOGLOBIN 8.2 g/dL (11.5-14.8); LYMPHOCYTES # (AUTO) 1.6 K/uL (0.8-4.8); LYMPHOCYTES % (AUTO) 25.9 % (20.0-44.0); MEAN CORPUSCULAR HGB CONC 33 g/dl (31.0-36.0); MEAN CORPUSCULAR VOLUME 96 fL (82-100); MONOCYTES # (AUTO) 0.4 K/uL (0.1-1.30); MONOCYTES % (AUTO) 6.2 % (2.0-12.0); NEUTROPHILS % (AUTO) 64.1 % (43.0-81.0); PLATELET COUNT (AUTO) 224 K/uL (150-450); RED BLOOD CELL COUNT(AUTO) 2.58 MIL/uL (4.0-5.2); WHITE BLOOD COUNT (AUTO) 6.2 K/uL (4.3-11.0)
[2022-04-12] MEDS: ASPIRIN 81 MG TAB.CHEW PO SCH (09:00)
[2022-04-12] MEDS ORDERED: LOSARTAN POTASSIUM 50 MG TABLET PO SCH (09:00)
[2022-04-12] MEDS: ASCORBIC ACID 500 MG TABLET PO SCH (09:00)
[2022-04-12] MEDS: APIXABAN 2.5 MG TABLET PO SCH (09:02)
[2022-04-12] MEDS: MULTIVIT W/MINERALS 1 TAB TABLET PO SCH (09:02)
[2022-04-12] MEDS: NIFEdipine XL (30MG) 30 MG TAB PO SCH (09:03)
[2022-04-12] MEDS: FUROSEMIDE 40 MG/4 ML VIAL IV SCH (09:04)
[2022-04-12] MEDS: CARVEDILOL 12.5 MG TABLET PO SCH ×2 (09:04→17:15)
[2022-04-12] MEDS: HYDROCORTISONE CR 30 GM TUBE RC SCH ×3 (10:00→17:00)
[2022-04-12] MEDS: POTASSIUM CHLORIDE 20 MEQ TAB.PRT.SR PO SCH ×3 (10:26→12:51)
[2022-04-12] MEDS: FUROSEMIDE 100 MG/10 ML VIAL IV SCH ×3 (10:28→17:41)
--- NOTE | 2022-04-12 10:30 | NUR ---
RN NOTES 1028 LASIX 40MG IV GIVEN INSTEAD OF 80MG NEW ORDER. LASIX 40MG IV GIVEN AT 0904.
[2022-04-12 12:00] VITALS: BP 134/62
[2022-04-12 16:00] VITALS: BP 148/73
--- NOTE | 2022-04-12 16:40 | NUR ---
RN NOTES URINE SAMPLE COLLECTED, LAB INFORMED.
[2022-04-12] MEDS: *INSULIN REGULAR(HUMULIN R)HUM 100 UNIT/ML VIAL SQ PRN (17:02)
[2022-04-12] MEDS: DOCUSATE SODIUM 100 MG CAPSULE PO SCH (17:16)
[2022-04-12 17:24] LABS: CREATININE, URINE < 13.0 MG/DL (30.0-125.0); URINE SODIUM, RANDOM 123 mmol/l (40-220)
[2022-04-12 17:42] LABS: BILIRUBIN,URINE NEGATIVE (NEGATIVE); COLOR,URINE YELLOW (YELLOW); LEUKOCYTE ESTERASE ,URINE 1+ (NEGATIVE); NITRITE, URINE NEGATIVE (NEGATIVE); PH,URINE 5.5 (5.0-8.0); PROTEIN,URINE NEGATIVE (NEGATIVE); UGLUCOSE NEGATIVE (NEGATIVE); UROBILINOGEN,URINE 0.2 EU/dL (0.2)
[2022-04-12 17:57] LABS: BACTERIA,URINE 1+ /HPF (None Seen); RBC,URINE 51-80 /HPF (0-2); WBC,URINE 21-50 /HPF (0-3)
--- NOTE | 2022-04-12 18:17 | NUR ---
RN NOTES PT NOTED WITH URINE WBC 21-50, URINE BACTERIA 1+. INFORMED DR. CAST WITH ORDER OF KEFLEX 500MG TID, CARRIED OUT.
--- NOTE | 2022-04-12 18:38 | NUR ---
FURNACE MECHANIC HELPER CLOSING NOTE: PT RESTING IN BED AT THIS TIME. HOB ELEVATED. A/O X 4. ON RA, WITH NO SIGNS OF ACUTE RESPIRATORY DISTRESS. ABLE TO MAKE NEEDS KNOWN. DID NOT C/O PAIN AND DISCOMFORT WITHIN THE SHIFT. MAINTAINED IV ACCESS IN LAC #20G SL, C/D/I. AUTO PARTS SALESPERSON IN SR, HR-76. WITH MARCUS DRAINING SLIGHTLY CLOUDY YELLOW URINE. NEEDS ATTENDED. SAFETY MEASURE IN PLACE: CALL LIGHT AND TRAY TABLE WITHIN REACH, BED LOCKED AND IN LOWEST POSITION, SIDE RAILS X 3. WILL ENDORSE TO EXPLOSIVE EXPERT NURSE.
--- NOTE | 2022-04-12 19:40 | NUR ---
ASSEMBLER DIELECTRIC HEATER CLOSING NOTE: RECEIVED PT IN BED AA/O X 4.ABLE TO MAKE NEEDS KNOWN.MOHINI WELL ON RM AIR,NO SOB/DISTRESS NOTED,IV ACCESS ON LAC #20G SL,NO COMPLAIN OF PAIN/DISCOMFORT AT THIS TIME,WITH MARCUS IN PLACE DRAINING AMDER URINE,SAFETY MEASURE IN PLACE: CALL LIGHT AND TRAY TABLE WITHIN REACH, BED LOCKED AND IN LOWEST POSITION, SIDE RAILS X 3. WILL CONTINUE TO MONITOR.
[2022-04-12 20:00] VITALS: BP 142/63
[2022-04-12] MEDS: CEPHALEXIN MONOHYDRATE 250 MG CAPSULE PO SCH (20:18)
[2022-04-13] VITALS: BP 134/66
[2022-04-13 04:00] VITALS: BP 148/73
[2022-04-13 06:24] LABS: BASOPHILS % (AUTO) 0.2 % (0.0-2.0); EOSINOPHILS % (AUTO) 0.7 % (0.0-6.0); HEMATOCRIT 25 % (33-45); HEMOGLOBIN 8.3 g/dL (11.5-14.8); LYMPHOCYTES % (AUTO) 18.2 % (20.0-44.0); MEAN CORPUSCULAR HGB CONC 33 g/dl (31.0-36.0); MEAN CORPUSCULAR VOLUME 97 fL (82-100); MONOCYTES # (AUTO) 0.6 K/uL (0.1-1.30); MONOCYTES % (AUTO) 5.5 % (2.0-12.0); NEUTROPHILS # (AUTO) 8.2 K/uL (1.8-8.9); NEUTROPHILS % (AUTO) 75.4 % (43.0-81.0); PLATELET COUNT (AUTO) 214 K/uL (150-450); RED BLOOD CELL COUNT(AUTO) 2.58 MIL/uL (4.0-5.2); WHITE BLOOD COUNT (AUTO) 10.9 K/uL (4.3-11.0)
[2022-04-13] MEDS: *INSULIN REGULAR(HUMULIN R)HUM 100 UNIT/ML VIAL SQ PRN ×2 (06:27→21:24)
[2022-04-13] MEDS: BLOOD SUGAR DIAGNOSTIC 1 EACH STRIP VI SCH ×4 (06:28→21:24)
--- NOTE | 2022-04-13 06:41 | NUR ---
ORACLE APPLICATIONS DEVELOPER CLOSING NOTE: PT IN BED AA/O X 4.BLIND BUT ABLE TO MAKE NEEDS KNOWN.MOHINI WELL ON RM AIR,NO SOB/DISTRESS NOTED,DUE MEDS GIVEN ORDER,ALL NEEDS ATTENDED,IV ACCESS ON LAC #20G SL,NO COMPLAIN OF PAIN/DISCOMFORT AT THIS TIME,WITH MARCUS IN PLACE DRAINING AMDER URINE,SAFETY MEASURE IN PLACE: CALL LIGHT AND TRAY TABLE WITHIN REACH, BED LOCKED AND IN LOWEST POSITION, SIDE RAILS X 3. WILL ENDORSED TO NEXT SHIFT,
[2022-04-13 07:16] LABS: ALBUMIN 2.1 g/dL (3.4-5.0); BILIRUBIN,TOTAL 0.5 mg/dL (0.2-1.0); CALCIUM, SERUM 8.3 mg/dL (8.5-10.1); CREATININE 1.7 mg/dL (0.6-1.3); MAGNESIUM 1.6 mg/dL (1.8-2.4); POTASSIUM 3.7 mmol/L (3.5-5.1); TOTAL PROTEIN, SERUM 6.1 g/dL (6.4-8.2)
--- NOTE | 2022-04-13 07:25 | NUR ---
MONITORING ENGINEER OPENING NOTE: PT RECEIVED IN BED, AWAKE. A/O X 4. ON RA, TOLERATED WELL. WITH NO SIGNS OF ACUTE RESPIRATORY DISTRESS. ABLE TO MAKE NEEDS KNOWN. NO C/O PAIN AND DISCOMFORT AT THIS TIME. IV ACCESS IN LAC #20G SL, C/D/I. WITH ETIOLOGY TEACHER IN SR, HR-70. WITH MARCUS DRAINING VIA GRAVITY WITH CLEAR YELLOW URINE. PT STILL WITH EDEMA IN BILATERAL LOWER EXTREMETIES, SUBSIDING. SAFETY MEASURE IN PLACE: CALL LIGHT AND TRAY TABLE WITHIN REACH, BED LOCKED AND IN LOWEST POSITION, SIDE RAILS X 3. WILL CONTINUE TO MONITOR.
[2022-04-13] MEDS: LEVOTHYROXINE SODIUM 100 MCG TABLET PO SCH (07:29)
[2022-04-13 08:32] VITALS: BP 148/68
[2022-04-13] MEDS: ASCORBIC ACID 500 MG TABLET PO SCH (09:00)
[2022-04-13] MEDS: ASPIRIN 81 MG TAB.CHEW PO SCH (09:00)
[2022-04-13] MEDS: MULTIVIT W/MINERALS 1 TAB TABLET PO SCH (09:00)
[2022-04-13] MEDS: HYDROCORTISONE CR 30 GM TUBE RC SCH ×3 (09:00→16:16)
[2022-04-13] MEDS: VALSARTAN 80 MG TABLET PO SCH ×2 (09:00→09:21)
--- NOTE | 2022-04-13 09:15 | NUR ---
RN NOTES PT REFUSED DIOVAN 2TABS (160MG), MEDICATION ALREADY OPEN AND WASTED AND WITNESSED BY REFUGIO STERLING.
[2022-04-13] MEDS: NIFEdipine XL (30MG) 30 MG TAB PO SCH (09:16)
[2022-04-13] MEDS: CEPHALEXIN MONOHYDRATE 250 MG CAPSULE PO SCH ×4 (09:16→16:52)
[2022-04-13] MEDS: CARVEDILOL 12.5 MG TABLET PO SCH ×2 (09:17→16:35)
[2022-04-13] MEDS ORDERED: Magnesium 1GM/D5W 100ML PREMIX 100 ML IV SCH (10:00)
--- NOTE | 2022-04-13 11:10 | NUR ---
WOUND CARE CONSULT: PT PRESENTS WITH UNEVEN PIGMENTATION AND BLANCHABLE REDNESS TO BUTTOCKS, PRESENT ON ADMISSION. RECOMMENDATIONS MADE FOR SKIN PROTECTION. DISCUSSED WITH NURSING STAFF. MD IN AGREEMENT WITH PLAN OF CARE.
[2022-04-13] MEDS: INSULIN REGULAR, HUMAN 100 UNIT/ML 3 ML VIAL SQ PRN (11:40)
[2022-04-13 11:48] VITALS: BP 134/55
[2022-04-13 16:11] VITALS: BP 107/51
[2022-04-13] MEDS: DOCUSATE SODIUM 100 MG CAPSULE PO SCH (17:06)
--- NOTE | 2022-04-13 18:32 | NUR ---
TILE POWER SHEAR OPERATOR CLOSING NOTE: PT RESTING IN BED AT THIS TIME. HOB ELEVATED. A/O X 4. ON RA, WITH NO SIGNS OF ACUTE RESPIRATORY DISTRESS. DID NOT C/O PAIN AND DISCOMFORT WITHIN THE SHIFT. MAINTAINED IV ACCESS IN LAC #20G SL, C/D/I. PARTY PLAN SALES DIRECTOR IN SR, HR-66. WITH MARCUS DRAINING CLEAR YELLOW URINE. NEEDS ATTENDED. SAFETY MEASURE IN PLACE: CALL LIGHT AND TRAY TABLE WITHIN REACH, BED LOCKED AND IN LOWEST POSITION, SIDE RAILS X 3. WILL ENDORSE TO GARNISHMENT SPECIALIST NURSE.
--- NOTE | 2022-04-13 19:55 | NUR ---
RN OPENING NOTE PATIENT AWAKE IN BED. A/OX4, OU BLINDNESS. NO S/S OF DISTRESS, BREATHING WITHOUT DIFFICULTY ON 2L NC. LAC #20 SL INTACT AND PATENT. TELE READS SR 67 W/ 1ST DEGREE AV BLOCK. SAFETY MEASURES IN PLACE: BED LOCKED AND AT LOWEST POSITION, RAILS UP X2, CALL RACHEL WITHIN REACH. WILL CONTINUE TO MONITOR PATIENT.
[2022-04-13 20:00] VITALS: BP 116/58
[2022-04-14] VITALS: BP 122/61
[2022-04-14 04:00] VITALS: BP 133/63
[2022-04-14] MEDS: INSULIN REGULAR, HUMAN 100 UNIT/ML 3 ML VIAL SQ PRN (06:33)
[2022-04-14] MEDS: BLOOD SUGAR DIAGNOSTIC 1 EACH STRIP VI SCH (06:33)
--- NOTE | 2022-04-14 06:37 | NUR ---
RN CLOSING NOTE PATIENT AWAKE IN BED. A/OX4. NO S/S OF DISTRESS, BREATHING WITHOUT DIFFICULTY ON 2L NC. LAC #20 SL INTACT AND PATENT. TELE READS SR 68. SAFETY MEASURES IN PLACE: BED LOCKED AND AT LOWEST POSITION, RAILS UP X2, CALL RACHEL WITHIN REACH. WILL CONTINUE TO MONITOR PATIENT.
--- NOTE | 2022-04-14 07:29 | NUR ---
DATA STEWARD OPENING NOTE RECEIVED PT ASLEEP IN BED, EASILY AROUSED. PT IS A/OX4, ABLE TO MAKE NEEDS ATTENDED. PT IS ON O2 AT 2L/MIN VIA NASAL CANNULA, TOLERATING WELL. NO SOB NOTED. NOT IN ANY SIGN OF RESPIRATORY DISTRESS. PT IS ON CARDIAC TELE MONITOR WITH CURRENT READING OF SINUS RHYTHM, HR 68. NO C/O CARDIAC DISTRESS VOICED OUT AT THIS TIME. IV ACCESS ON LAC G#20 INTACT AND PATENT. RECEIVED REPORT FROM LEAD PRINCIPAL TECHNICAL ARCHITECT NURSE THAT PT WILL BE DISCHARGE AND WILL BE PICKED UP BY AMBULANCE AT 1000. SAFETY MEASURES IN PLACE: BED IN LOWEST AND LOCKED POSITION, SIDE RAILS UPX2, AND CALL LIGHT WITHIN REACH. WILL CONTINUE TO MONITOR PT.
[2022-04-14] MEDS: LEVOTHYROXINE SODIUM 100 MCG TABLET PO SCH (08:15)
[2022-04-14] MEDS: MULTIVIT W/MINERALS 1 TAB TABLET PO SCH (08:50)
[2022-04-14] MEDS: ASPIRIN 81 MG TAB.CHEW PO SCH (08:50)
[2022-04-14] MEDS: ASCORBIC ACID 500 MG TABLET PO SCH (08:50)
[2022-04-14] MEDS: CEPHALEXIN MONOHYDRATE 250 MG CAPSULE PO SCH (08:51)
[2022-04-14] MEDS: CARVEDILOL 12.5 MG TABLET PO SCH (08:52)
[2022-04-14] MEDS: VALSARTAN 80 MG TABLET PO SCH (08:52)
[2022-04-14 08:53] VITALS: BP 104/58
[2022-04-14] MEDS: NIFEdipine XL (30MG) 30 MG TAB PO SCH (08:53)
[2022-04-14] MEDS: HYDROCORTISONE CR 30 GM TUBE RC SCH (08:53)
--- NOTE | 2022-04-14 10:40 | NUR ---
RN NOTE LIFE VEST WAS GIVEN TO CHARGE NURSE. PER PT, DR. GREGORY AND DR. CAST STATED THAT SHE DOES NOT NEED THE LIFE VEST ANYMORE AND MAY LEAVE IT BEHIND. CHARGE NURSE CALLED DR. GREGORY TO CLARIFY AND DR. GREGORY AGREED THAT LIFE VEST CAN BE LEFT BEHIND AND RETURN TO THE COMPANY.
--- NOTE | 2022-04-14 11:07 | NUR ---
OCCUPATIONAL HEALTH PROFESSIONAL NOTE PT DISCHARGED TO [facility] IN STABLE CONDITION. PT A/O X4, ABLE TO MAKE NEEDS KNOWN. PT IS BLIND ON BOTH EYES. PT ON ROOM AIR, TOLERATING WELL WITH SPO2 AT 94%. NO SOB NOTED. NOT IN ANY SIGN OF RESPIRATORY DISTRESS. VITAL SIGNS TAKEN, STABLE, AND RECORDED. PHOTOGRAPHS OF SKIN ISSUES TAKEN AND FILED IN THE CHART. ALL BELONGINGS ACCOUNTED FOR. DISCHARGED INSTRUCTIONS AND HEALTH TEACHINGS INCLUDING EXPLAINED TO THE PT. PT VERBALIZED UNDERSTANDING OF INSTRUCTIONS AND HEALTH TEACHINGS. IV ACCESS ON LAC G#20 REMOVED WITH NO ACTIVE BLEEDING NOTED. DRY PRESSURE DRESSING APPLIED AT THE SITE. MARCUS CATH REMOVED EARLIER WITH URINE OUTPUT OF 150 ML FROM THE BAG. WRISTBAND REMOVED. REPORT GIVEN EARLIER TO REFUGIO COOMBS OF [facility]. PT LEFT THE UNIT AT 1100 VIA GURERN ACCOMPANIED BY 3 EMT'S. AND CHARGED NURSE AWARE OF DISCHARGED. Addendum: 04/14/22 at 1110 by ROBIN NEWTON RN ADDENDUM TELE CAPTAIN ROOM SERVICE REMOVED AND TELE BOX GIVEN TO BECKA LAWTON. TELE CARDIAC READING PRIOR TO REMOVING THE MONITOR WAS SINUS RHYTHM, HR 70. NO C/O CARDIAC DISTRESS VOICED OUT AT THIS TIME.
== END 2022-04-14 11:30 | DRG 291 ==
LOC: ER 12:57 → TELE 15:44
PROVIDERS: ADMIT Internal Medicine; ATTEND Internal Medicine
DX: I13.0 Hypertensive heart and chronic kidney disease with heart failure and stage 1 through stage 4 chronic kidney disease, or unspecified chronic kidney disease (principal); E43 Unspecified severe protein-calorie malnutrition; I50.23 Acute on chronic systolic (congestive) heart failure; D68.59 Other primary thrombophilia; I31.39 Other pericardial effusion (noninflammatory); Z79.4 Long term (current) use of insulin; Z20.822 Contact with and (suspected) exposure to COVID-19; E11.22 Type 2 diabetes mellitus with diabetic chronic kidney disease; N18.9 Chronic kidney disease, unspecified; R32 Unspecified urinary incontinence; Z79.84 Long term (current) use of oral hypoglycemic drugs; Z79.899 Other long term (current) drug therapy; Z79.82 Long term (current) use of aspirin; I89.0 Lymphedema, not elsewhere classified; H54.7 Unspecified visual loss; D63.1 Anemia in chronic kidney disease; E88.09 Other disorders of plasma-protein metabolism, not elsewhere classified; H43.10 Vitreous hemorrhage, unspecified eye; I87.8 Other specified disorders of veins
CPT/HCPCS: 36415; 71045-TC; 76770-TC; 80048-TC; 80053-TC; 80076-TC; 81001; 82570-TC; 82962-TC; 83735-TC; 83880; 84100-TC; 84300-TC; 84484-TC; 85025-TC; 87081-TC; 87086-TC; 93307-TC; C9803; G0378; J1815; J1940; J2405; J3475